=== PATIENT | male | born 1990 | race American Indian/Alaskan Native ===

== ENCOUNTER 2017-11-24 21:36 | Emergency (ER) | payer SELFPAY ==
[2017-11-25 00:14] LABS: Bilirubin,Urine NEG (Negative); Blood,Urine LG (Negative); Color,Urine Yellow (Yellow); Mucus,Urine FEW /HPF; Urobilinogen,Urine < 2.0 mg/dL (<2.0)
[2017-11-25 00:29] LABS: RBC,Urine > 182.0 /HPF (0.0-6.0)
[2017-11-25] MEDS ORDERED: TORADOL IV ONE (11:15)
[2017-11-25] MEDS ORDERED: DILAUDID IV ONE (11:15)
[2017-11-25] MEDS ORDERED: ZOFRAN IV ONE (11:15)
[2017-11-25] MEDS ORDERED: NACL 0.9% 1000 ML 1,000 ML IV ONE (11:15)
--- NOTE | 2017-11-25 12:06 | Cat Scan Report ---
CT ABDOMEN PELVIS WITHOUT CONTRAST: HISTORY: Left flank pain. COMPARISON: none. TECHNIQUE: Helical CT in 1.25mm intervals without IV contrast. Sagittal and coronal reconstructions. FINDINGS: Lung bases: Normal. Liver: Normal. Biliary system: Enlarged solitary gallstone is suspected in the gallbladder neck measuring up to 1.6 cm. No biliary dilatation or inflammation is identified. Pancreas: Normal. Spleen: Normal. Kidneys/ureters/bladder: Moderate to severe left hydronephrosis is identified. 2 stones are identified in the mid left ureter at the level of L4. The proximal stone measures 4.9 mm in diameter. The distal stone measures 5.5 mm in diameter. No right ureteral stones. There are approximately 7 calyceal stones in the left kidney ranging from 1 mm-5 mm. There are approximately 4 or 5 punctate calyceal stones in the right kidney. No right ureteral stones. The bladder is unremarkable. Adrenal glands: Normal. Aorta: Normal. Intestines: Normal. Appendix: Normal. Ascites: None. Adenopathy: None. Musculoskeletal: Normal. IMPRESSION: There are 2 stones in the mid left ureter as described above, moderately obstructing. Bilateral calyceal stones as described. Cholelithiasis.
[2017-11-25 12:10] LABS: Basophils % (Auto) 0.3 % (0.0-1.8); Hematocrit 44.6 % (35.5-45.6); Lymphocytes # (Auto) 2.1 K/mm3 (1.2-5.4); Lymphocytes % (Auto) 13.2 % (13.4-35.0); Mean Corpuscular HGB Conc 34 % (32-34); Mean Corpuscular Hemoglobin 30 pg (28-32); Mean Corpuscular Volume 88 fl (84-94); Monocytes # (Auto) 1.5 K/mm3 (0.0-0.8); Monocytes % (Auto) 9.3 % (0.0-7.3); Platelet Count 258 K/mm3 (140-440); Red Blood Count 5.09 M/mm3 (3.65-5.03); Red Cell Distribution Width 13.5 % (13.2-15.2)
[2017-11-25 12:28] LABS: BUN/Creatinine Ratio 8; Blood Urea Nitrogen 9 mg/dL (9-20); Calcium 9.2 mg/dL (8.4-10.2); Hemolysis Index 8
[2017-11-25] MEDS ORDERED: ROCEPHIN/NS 1 GM/50 ML 1 GM/50 ML BAG IV ONE (14:30)
[2017-11-25] MEDS ORDERED: NORCO 5/325 ONE (15:47)
--- NOTE | 2017-11-25 15:47 | Emergency Department Report ---
ED General Adult HPI - General Chief complaint: Abdominal Pain Stated complaint: LT SIDE PAIN Time Seen by Provider: 11/25/17 10:57 Source: patient Mode of arrival: Ambulatory Limitations: No Limitations - History of Present Illness Initial comments: 27-year-old male complains of left flank pain which radiates to the groin. He states he's had previous kidney stones. He is having onto a urologist. He denies fever or chills. He is not currently nauseated or vomiting. He states he's had intermittent but now somewhat constant pain since 4 in the morning. -: Gradual Location: left Radiation: other Severity scale (0 -10): 4 Quality: aching Consistency: constant Improves with: none Worsens with: none Associated Symptoms: denies other symptoms Treatments Prior to Arrival: none - Related Data Previous Rx's Medication Instructions Recorded Last Taken Type Ciprofloxacin HCl [Cipro] 500 mg PO BID #14 tablet 11/25/17 Unknown Rx HYDROcodone/APAP 5-325 [Seminary 1 each PO Q4HR PRN #14 tablet 11/25/17 Unknown Rx 5/325] Allergies Allergy/AdvReac Type Severity Reaction Status Date / Time No Known Allergies Allergy Verified 11/24/17 22:18 ED Review of Systems ROS: Stated complaint: LT SIDE PAIN Other details as noted in HPI Constitutional: denies: chills, fever Eyes: denies: eye pain, eye discharge, vision change ENT: denies: ear pain, throat pain Respiratory: denies: cough, shortness of breath, wheezing Cardiovascular: denies: chest pain, palpitations Endocrine: no symptoms reported Gastrointestinal: denies: abdominal pain, nausea, diarrhea Genitourinary: denies: urgency, dysuria Musculoskeletal: denies: back pain, joint swelling, arthralgia Skin: denies: rash, lesions Neurological: denies: headache, weakness, paresthesias Psychiatric: denies: anxiety, depression Hematological/Lymphatic: denies: easy bleeding, easy bruising ED Past Medical Hx - Past Medical History Previous Medical History?: Yes Hx Kidney Stones: Yes - Surgical History Past Surgical History?: Yes Additional Surgical History: knee - Social History Smoking Status: Current Every Day Smoker Substance Use Type: None - Medications Home Medications: Home Medications Medication Instructions Recorded Confirmed Last Taken Type Ciprofloxacin HCl [Cipro] 500 mg PO BID #14 tablet 11/25/17 Unknown Rx HYDROcodone/APAP 5-325 [Seminary 1 each PO Q4HR PRN #14 tablet 11/25/17 Unknown Rx 5/325] ED Physical Exam - General Limitations: No Limitations General appearance: alert, in no apparent distress - Head Head exam: Present: atraumatic, normocephalic - Eye Eye exam: Present: normal appearance. Absent: scleral icterus - ENT ENT exam: Present: mucous membranes moist - Neck Neck exam: Present: normal inspection. Absent: tenderness, meningismus - Respiratory Respiratory exam: Present: normal lung sounds bilaterally. Absent: respiratory distress - Cardiovascular Cardiovascular Exam: Present: regular rate, normal rhythm. Absent: systolic murmur, diastolic murmur, rubs, gallop - GI/Abdominal GI/Abdominal exam: Present: soft, normal bowel sounds. Absent: distended, tenderness, guarding, rebound, rigid - Rectal Rectal exam: Present: deferred - Extremities Exam Extremities exam: Present: normal inspection - Back Exam Back exam: Present: normal inspection. Absent: CVA tenderness (R), CVA tenderness (L) - Neurological Exam Neurological exam: Present: alert, oriented X3, CN II-XII intact. Absent: motor sensory deficit - Psychiatric Psychiatric exam: Present: normal affect, normal mood - Skin Skin exam: Present: warm, dry, intact, normal color. Absent: rash ED Course Vital Signs 11/24/17 11/25/17 22:15 12:15 Temperature 98.2 F Pulse Rate 74 78 Respiratory 18 20 Rate Blood Pressure 125/87 Blood Pressure 126/74 [Right] O2 Sat by Pulse 98 97 Oximetry - Reevaluation(s) Reevaluation #1: I spoke with Dr. Joya. We reviewed the CT findings. Dr. Joya was kind enough to agree to follow the patient in the office. He stated that we could treat the patient with Cipro pending culture. His urine was not really compelling for infection. He did have a white count of 15.5. He was given 1 dose ceftriaxone and his urine was cultured. He is given appropriate return criteria. On reexam the patient's pain had improved. He was resting comfortably. His vital signs are stable. He will follow up with Dr. Joya. He is aware of the problems of kidney stones of this nature and the potential for infection as well. He is discharged in stable condition. 11/25/17 15:53 ED Medical Decision Making - Lab Data Result diagrams: 11/25/17 11:21 11/25/17 11:21 Laboratory Results - last 24 hr 11/24/17 11/25/17 11/25/17 Unknown 11:21 11:21 WBC 15.8 H RBC 5.09 H Hgb 15.0 Hct 44.6 MCV 88 MCH 30 MCHC 34 RDW 13.5 Plt Count 258 Lymph % (Auto) 13.2 L Hendricks % (Auto) 9.3 H Eos % (Auto) 0.0 Baso % (Auto) 0.3 Lymph # 2.1 Hendricks # 1.5 H Eos # 0.0 Baso # 0.0 Seg Neutrophils % 77.2 H Seg Neutrophils # 12.2 H Sodium 142 Potassium 4.0 Chloride 102.0 Carbon Dioxide 28 Anion Gap 16 BUN 9 Creatinine 1.2 Estimated GFR > 60 BUN/Creatinine Ratio 8 Glucose 93 Calcium 9.2 Urine Color Yellow Urine Turbidity Clear Urine pH 6.0 Ur Specific [place] 1.014 Urine Protein 30 mg/dl Urine Glucose (UA) Neg Urine Ketones Neg Urine Blood Lg Urine Nitrite Neg Urine Bilirubin Neg Urine Urobilinogen < 2.0 Ur Leukocyte Esterase Sm Urine WBC (Auto) 8.0 H Urine RBC (Auto) > 182.0 U Epithel Cells (Auto) 1.0 Urine Mucus Few - Radiology Data Radiology results: report reviewed (CT showed 2 stones measuring 4.9 at 5.5 in the mid left ureter with moderate to severe hydronephrosis. This was discussed with Dr. Joya.) Critical care attestation.: If time is entered above; I have spent that time in minutes in the direct care of this critically ill patient, excluding procedure time. ED Disposition Clinical Impression: Renal colic on left side, Ureterolithiasis Disposition: [id number] TO HOME OR SELFCARE Is pt being admited?: No Does the pt Need Aspirin: No Condition: Stable Instructions: Kidney Stones (ED), Renal Colic (ED) Additional Instructions: Return to the emergency department should you have fever or chills, significant nausea or vomiting, increased pain or feel generally weak or ill. Otherwise, call Dr. Joya's office tomorrow for further instruction. You must follow-up with the urologist on your kidney stones. In addition, the urologist needs to check your urine culture within the next 2 days. You will be given antibiotics and something for pain. Prescriptions: Ciprofloxacin HCl [Cipro] 500 mg PO BID #14 tablet HYDROcodone/APAP 5-325 [Seminary 5/325] 1 each PO Q4HR PRN #14 tablet PRN Reason: Pain Referrals: REILLY JOYA MD [Staff Physician] - 3-5 Days PRIMARY CARE, [Primary Care Provider] - 24 Hours Time of Disposition: 15:58
[2017-11-25] MEDS ORDERED: NORCO 5/325 PO ONE (15:55)
[2017-11-25 15:58] VITALS: BP 106/61
== END 2017-11-25 16:19 | disposition home or self-care (01) ==
LOC: ED 21:36
DX: N20.2 Calculus of kidney with calculus of ureter (principal); F17.200 Nicotine dependence, unspecified, uncomplicated
CPT/HCPCS: 36415; 74176; 80048; 81001; 85025; 96374; 96375; 99284; J0696; J1170; J1885; J2405; J7030